=== PATIENT | female | born 1950 | race Caucasian/White ===

== ENCOUNTER 2017-12-18 16:13 | Emergency (ER) | payer MEDICARE, BC ==
[~2017-12-18] VITALS: Ht 165.1 cm; Wt 84.8 kg
[~2017-12-18 16:13] MED LIST: ACYC400T PO; ALBU0.63 NEB; ALBU6.7H IH; CIPR500T94 PO; DOXY100C PO; FLUT12AE IH; FLUT1DIS5 IH; FLUT9.9S NS; HYDR25TA9 PO; IBUP800T19 PO; MECL25TA3 PO; METO25TA4 PO; NICO1PAT25 TP; PRED-220 PO; PRED20TA PO; TIOT18CA IH; TRIAMTERENE PO; [UNRECOGNIZED DRUG - OTHER] LEFT EAR
[2017-12-18] MEDS ORDERED: DIPHTH,PERTUSS(ACELL),TET TOX 0.5 ML DISP.SYRIN. VAX IM ONE (16:30)
--- NOTE | 2017-12-18 16:30 | PHYS DOC ---
Past History Past Medical History: CAD, Other Past Surgical History: Appendectomy Smoking: Less than 1pk/day Alcohol Use: None Drug Use: None Adult General HPI HPI Patient is a 67 year old female who presents to the emergency department for evaluation. She states that she tripped over her tennis shoe, and fell to the ground, striking her forehead, on the right side, on the floor. She sustained a laceration, which has been bleeding heavily. She takes aspirin and Plavix for heart disease. She denies any loss of consciousness, or any other painful areas. She denies any neck pain, facial pain, vision changes, numbness, weakness , back pain, or extremity pain or injury. There are no alleviating, or exacerbating factors to her symptoms. Review of Systems Review of Systems Constitutional: Denies fever or chills [] Eyes: Denies change in visual acuity, redness, or eye pain [] HENT: Denies nasal congestion or sore throat [] Respiratory: Denies cough or shortness of breath [] Cardiovascular: The patient denies any shortness of breath, chest pain, palpitations, or orthopnea [] GI: Denies abdominal pain, nausea, vomiting, bloody stools or diarrhea [] : Denies dysuria or hematuria [] Musculoskeletal: Denies back pain or joint pain [] Integument: Denies rash or skin lesions, other than the right forehead laceration. [] Neurologic: Denies headache, focal weakness or sensory changes [] Current Medications Current Medications Current Medications Medications (Trade) Dose Ordered Sig/Satish Start Time Stop Time Status Last Admin Dose Admin Diphtheria/ Tetanus/Acell Pertussis (Boostrix) 0.5 ml ONCE ONCE 12/18/17 16:30 12/18/17 16:31 UNV Allergies Allergies Allergies Coded Allergies Type Severity Reaction Last Updated Verified Penicillins Allergy Severe Anaphylaxis 06/20/14 Yes Sulfa (Sulfonamide Antibiotics) Allergy Severe Anaphylaxis 06/20/14 Yes erythromycin base Allergy Intermediate 01/17/15 Yes naproxen Allergy Intermediate 01/17/15 Yes tramadol Allergy Intermediate Hives 01/17/15 Yes Physical Exam Physical Exam PHYSICAL EXAM: CONSTITUTIONAL: Well developed, well nourished HEAD: There is an approximately 1 inch laceration on the right side of the forehead. The lateral aspect of the wound is bleeding. Pressure is been applied. The remainder of the cranium is Normocephalic, atraumatic EENT: PERRL, EOMI. Conjunctivae normal color, sclerae non-icteric; moist mucous membranes. There is no facial bony tenderness to palpation or periorbital tenderness to palpation. NECK: Supple, non-tender; no meningismus.There is full, painless range of motion of the cervical spine, without any focal bony midline tenderness to palpation. LUNGS: Lungs CTA, breathing even and unlabored. Normal air movement. HEART: Regular rate and rhythm, no murmur CHEST: No deformity; non-tender ABDOMEN: The abdomen is soft, and non-tender, no masses or bruits. EXTREM: Normal ROM; no deformity, no calf tenderness. Normal pulses palpable in all extremities. There is no pedal edema. SKIN: No rash; no diaphoresis NEURO: Alert; normal speech and cognition; CN's grossly intact; strength grossly intact without focal deficit. BACK: No CVA TTP.There is no bony tenderness to palpation of the thoracic or lumbar spine. EKG EKG [] Radiology/Procedures Radiology/Procedures [PROCEDURE: CT HEAD WO CONTRAST CT of the head without contrast, 12/18/2017: HISTORY: Fall, injury A scalp hematoma is noted in the right frontal region laterally. No underlying fracture is evident. There is mild cerebral atrophy. The ventricles are within normal limits in size. There is no shift of the midline structures. There is no evidence of acute intracranial hemorrhage or mass effect. A lucency in the left basal ganglia anteriorly is unchanged since 08/11/2014 and is compatible with an old lacunar infarct. Mild bilateral deep white matter lucencies suggesting chronic ischemic change. The visualized portion of the right maxillary sinus is opacified, likely on an inflammatory basis. IMPRESSION: 1. Chronic findings as described above. 2. No acute intracranial abnormality is detected. ] Course & Med Decision Making Course & Med Decision Making Pertinent Imaging studies reviewed. (See chart for details) I reviewed test results with the patient and her family, return precautions for signs or symptoms of developing worsening or serious head injury, and the need for follow-up. LACERATION REPAIR PROCEDURE NOTE: The 4 centimeter laceration on the right forehead was irrigated copiously with normal saline, anesthetized with 1% lidocaine with epinephrine, prepped with Betadine, and draped with sterile drapes. Sterile technique was used. The wound was closed with #6 4-0 running sutures. Good epithelial approximation was obtained. The patient tolerated the procedure well. Dragon Disclaimer Dragon Disclaimer This electronic medical record was generated, in whole or in part, using a voice recognition dictation system. Departure Departure: Impression: Primary Impression: Forehead laceration Additional Impression: Closed head injury Disposition: HOME, SELF-CARE Condition: STABLE Referrals: SILVANO ESPARZA MD (PCP) Patient Instructions: Head Injury, Adult, Laceration Care, Adult Additional Instructions: Suture removal in 7 days Problem Qualifiers JUAN MCDONOUGH MD Dec 18, 2017 16:30
--- NOTE | 2017-12-18 16:49 | RAD ---
CT of the head without contrast, 12/18/2017: HISTORY: Fall, injury A scalp hematoma is noted in the right frontal region laterally. No underlying fracture is evident. There is mild cerebral atrophy. The ventricles are within normal limits in size. There is no shift of the midline structures. There is no evidence of acute intracranial hemorrhage or mass effect. A lucency in the left basal ganglia anteriorly is unchanged since 08/11/2014 and is compatible with an old lacunar infarct. Mild bilateral deep white matter lucencies suggesting chronic ischemic change. The visualized portion of the right maxillary sinus is opacified, likely on an inflammatory basis. IMPRESSION: 1. Chronic findings as described above. 2. No acute intracranial abnormality is detected. PQRS Compliance Statement: One or more of the following individualized dose reduction techniques were utilized for this examination: 1. Automated exposure control 2. Adjustment of the mA and/or kV according to patient size 3. Use of iterative reconstruction technique Electronically signed by: Fly Sebastian MD (12/18/2017 4:46 PM) [facility]
[2017-12-18 17:25] VITALS: BP 141/77
[2017-12-18] MEDS ORDERED: LIDOCAINE 1%/EPI 1:100,000 20 ML VIAL. IJ ONE (17:30)
== END 2017-12-18 17:30 | disposition home or self-care (01) ==
LOC: ER 16:13
DX: S01.81XA Laceration without foreign body of other part of head, initial encounter (principal); S09.90XA Unspecified injury of head, initial encounter; I25.10 Atherosclerotic heart disease of native coronary artery without angina pectoris; F17.200 Nicotine dependence, unspecified, uncomplicated; Z88.0 Allergy status to penicillin; Z88.2 Allergy status to sulfonamides; Z88.1 Allergy status to other antibiotic agents; Z88.6 Allergy status to analgesic agent; Z88.8 Allergy status to other drugs, medicaments and biological substances; W18.09XA Striking against other object with subsequent fall, initial encounter; Y93.89 Activity, other specified; Y92.89 Other specified places as the place of occurrence of the external cause; Y99.8 Other external cause status
CPT/HCPCS: 12013; 70450; 90471; 90715; 99284-25